=== PATIENT | female | born 1975 | race Caucasian/White ===

== ENCOUNTER 2018-03-22 07:47 | Observation (INO) | payer BC ==
[~2018-03-22 07:47] MED LIST: Lactated Ringers 1,000 ML IV SCH; Sodium Chloride 0.9% 10 ML Syringe FLUSH PRN; Sodium Chloride 0.9% 2.5 ML Syringe FLUSH PRN; ceFAZolin 1 GM in Premix Bag 1 BAG IV ONE
[2018-03-22] MEDS ORDERED: Fluorescein 5 ML Vial ONE (08:21)
[2018-03-22] MEDS ORDERED: Bupivacaine 0.25% 10 ML SDV ONE (08:21)
--- NOTE | 2018-03-22 08:47 | PCM.PREANE ---
Preanesthetic Assessment - Anesthesia/Transfusion/Family Hx Anesthesia History: Prior Anesthesia Without Reaction Family History of Anesthesia Reaction: No Transfusion History: No Prior Transfusion(s) Intubation History: Unknown - Review of Systems General: No Symptoms Pulmonary: No Symptoms Cardiovascular: No Symptoms Gastrointestinal: No Symptoms Neurological: No Symptoms Other: Reports: None - Physical Assessment Height: 1.6 m Weight: 63.049 kg ASA Class: 2 Mental Status: Alert & Oriented x3 Airway Class: Mallampati = 2 Dentition: Reports: Normal Dentition Thyro-Mental Finger Breadths: 3 Mouth Opening Finger Breadths: 2 ROM/Head Extension: Full Lungs: Clear to Auscultation, Normal Respiratory Effort Cardiovascular: Regular Rate, Regular Rhythm - Allergies Allergies/Adverse Reactions: Allergies Allergy/AdvReac Type Severity Reaction Status Date / Time Sulfa (Sulfonamide Allergy Rash Verified 03/17/18 09:38 Antibiotics) - Blood Blood Available: No - Anesthesia Plan Pre-Op Medication Ordered: None - Acknowledgements Anesthesia Type Planned: General Anesthesia Pt an Appropriate Candidate for the Planned Anesthesia: Yes Alternatives and Risks of Anesthesia Discussed w Pt/Guardian: Yes Pt/Guardian Understands and Agrees with Anesthesia Plan: Yes PreAnesthesia Questionnaire HEENT History: Reports: Allergic Rhinitis DRAG OUT MAN History: Reports: , Spontaneous Musculoskeletal History: Reports: Fracture Neurological History: Reports: Migraines (rarely) Psychiatric History: Reports: Depression - Past Surgical History Head Surgeries/Procedures: Reports: None HEENT Surgical History: Reports: Tonsillectomy Musculoskeletal Surgical History: Reports: Shoulder Surgery Other Musculoskeletal Surgeries/Procedures:: ORIF rt shoulder - SUBSTANCE USE Smoking Status *Q: Current Every Day Smoker (> 1ppd) Tobacco Use Within Last Twelve Months: Cigarettes Recreational Drug Use History: No - HOME MEDS Home Medications: Home Meds Acetaminophen/Diphenhydramine [Tylenol Pm Ex-Strength Caplet] 1 tab PO BEDTIME PRN 03/17/18 [History] Escitalopram Oxalate 20 mg PO DAILY 03/17/18 [History] Loratadine [Claritin] 10 mg PO ASDIRECTED PRN 03/17/18 [History] Multivitamin [Multivitamins] 1 tab PO DAILY 03/17/18 [History] - CURRENT (IN HOUSE) MEDS Current Meds: Current Medications Lactated Ringer's (Ringers, Lactated) 1,000 mls @ 500 mls/hr IV .BOLUS THUY Sodium Chloride (Saline Flush) 10 ml FLUSH ASDIRECTED PRN PRN Reason: Keep Vein Open Sodium Chloride (Saline Flush) 2.5 ml FLUSH ASDIRECTED PRN PRN Reason: Keep Vein Open Discontinued Medications Bupivacaine HCl (Sensorcaine-Mpf 0.25%) Confirm Administered Dose 20 ml .ROUTE .STK-MED ONE Stop: 03/22/18 08:22 Fluorescein Sodium (Ak-Fluor) Confirm Administered Dose 5 ml .ROUTE .STK-MED ONE Stop: 03/22/18 08:22 Cefazolin Sodium/Dextrose 1 gm (/ Premix) 50 mls @ 100 mls/hr IV ONETIME ONE Stop: 03/22/18 06:58
[2018-03-22] MEDS ORDERED: Lidocaine 2% 5 ML SDV ONE (08:52)
[2018-03-22] MEDS ORDERED: Propofol 200 MG/20 ML SDV ONE (08:52)
[2018-03-22] MEDS ORDERED: fentaNYL 250 MCG/5 ML SDV ONE (08:52)
[2018-03-22] MEDS ORDERED: ePHEDrine 50 MG/ML SDV ONE (08:52)
[2018-03-22] MEDS ORDERED: Acetaminophen 325 MG Tab PO PRN (09:22)
[2018-03-22 09:27] LABS: CHLORIDE,CL 106 mmol/L (98-107); SODIUM,NA 137 mmol/L (136-145)
[2018-03-22] MEDS ORDERED: Nicotine 21 MG/24 Hr Patch TRDERM SCH (09:30)
--- NOTE | 2018-03-22 09:57 | PCM.SN ---
- Free Text/Narrative Note: H & P in Chart 42 yo P4024 scheduled for hysterectomy today, however patient had 1 min loss of consciousness and pulse and loss of skin color. The nurse was with her in the room and said she did a short CPR and patient regained consciousness. Patient denied any chest pain , she however said she had some dizziness before the syncope Exam: General;- Not on any distress CVS: S1 s2 no murmurs Chest: CTA BL Abdomen; NAD VSS; In chart EKG - in Chart A/P 42 yo P4024 with 1 episode of Syncope pre op , surgery canceled Plan Nicotine patch Telemetry Consulted cardiology Troponin series EKG done
--- NOTE | 2018-03-22 13:58 | CONS ---
DATE OF CONSULTATION: 03/22/2018 DATE OF : 1975 PRIMARY CARE PHYSICIAN: None PCP REASON FOR CONSULTATION: Passing out. HISTORY OF PRESENT ILLNESS: This is a 42-year-old female with history of hypermenorrhea. She is scheduled to have vaginal hysterectomy today. However, during the IV preparation, she was stuck four times for the needles and she was so scared of it and it was very painful and afterwards, she started feeling nausea, sick to her stomach, dizzy, and she feels like warm feeling sensation, but she did not vomit. She was told that she looks so wide for 10 seconds, she passed out. The down time was 10 seconds and the nurse, who witnessed the occurrence could not find a pulse, so CPR was started very briefly and she came to it. The heart rate when she came to it was low with a heart rate of 50 and blood pressure is also low, has a systolic blood pressure of 80 as well. After she came to it, she was confused, she was sweating as well as she feels like tired. She stated that she passed out very long time about twenty years ago when she was . At that time, she had a similar warning symptom of a hot feeling, nausea, dizziness, and passed out. She did not remember what the situation was, but she remembered feeling the same thing. Currently, she was transferred to the medical floor and the surgery was canceled already. She also had a blood work done today, WBC 8, hematocrit of 40, creatinine 0.8, and then EKG also was done that shows sinus bradycardia, heart rate of 51. PAST MEDICAL HISTORY: Including hypermenorrhea. No history of hypertension, diabetes, or hyperlipidemia. SOCIAL HISTORY: Current smoker. No drug use. Occasional drinking. FAMILY HISTORY: Father had history of a stroke at the age of 40. ALLERGIES: She is allergic to sulfa. REVIEW OF SYSTEMS: Except indicated in HPI, otherwise has been negative. PHYSICAL EXAMINATION: VITAL SIGNS: Blood pressure when she passed out, it was 87/41 and it came up to 108/71; heart rate was 40 to 50, currently it is 76; O2 saturation is 96 on room air; respirations 16; temperature is 37.2. HEENT: No pallor. No jaundice. No JVD. HEART: Normal S1, S2. No murmur. Regular rate and rhythm. LUNGS: Clear. No crackles. ABDOMEN: Soft, nontender. Bowel sounds are present. No hepatosplenomegaly. EXTREMITIES: Legs, no edema. No calf pain. INVESTIGATION: CBC showed WBC of 8.8, hematocrit of 40, hemoglobin of 14, platelets 353. Sodium 137, potassium 4.5, chloride 106, bicarb 24, BUN 8, creatinine 0.8. Troponin was negative. Serum HCG was negative as well. Glucose 93. EKG shows sinus bradycardia, heart rate of 51, CO interval of 157, QRS duration 101, QTc interval 426. ASSESSMENT AND PLAN: 1. This is a 42-year-old female with history of former smoker, who passed out after needle insertion. 2. Syncopal episode with a slow heart rate, low blood pressure, most likely vasovagal syncope. Recommend hydration as well as I will also do the echocardiogram to rule out any structural abnormalities. The EKGs only show sinus bradycardia. She should be on the tele. She should also be on observation in the medical floor. MIKHAIL NELSON /[id number]
--- NOTE | 2018-03-22 14:26 | PCM.SN ---
- Free Text/Narrative Note: Patient presented today for laparoscopicly assisted vaginal hysterectomy. After 4 attempts to start i.v. patient felt nauseated, dizzy and hot which was followed by LOC . Radial pulse was not palpable by her nurse Susi Fitzpatrick neither were detectable any breathing efforts. Chest compressions were immediately started and patient regain consciousness after 10 sec by the time ambu bag was brought. Following that episode heart rate was in 40's and low 50' s with low blood pressure (systolic in the 80's). 12 lead EKG was obtained. HR was 51 and there were some questionable ST segment changes. Surgery was immediately canceled and after consultation with pastry decorator decision was made to keep the patient for observation and cardiac testing to rule out coronary event.
[2018-03-22] MEDS: Nicotine 21 MG/24 Hr Patch TRDERM SCH (15:42)
[2018-03-23] MEDS: Nicotine 21 MG/24 Hr Patch TRDERM SCH (09:00)
--- NOTE | 2018-03-23 11:28 | PCM.PN ---
- General Info Date of Service: 03/23/18 Admission Dx/Problem (Free Text): 42 yo admitted to telemetry due to sycopial attack , stable Subjective Update: Denies any complains Functional Status: Reports: Pain Controlled, Tolerating Diet - Review of Systems General: Reports: No Symptoms HEENT: Reports: No Symptoms Pulmonary: Reports: No Symptoms Cardiovascular: Reports: No Symptoms Gastrointestinal: Reports: No Symptoms Genitourinary: Reports: No Symptoms Musculoskeletal: Reports: No Symptoms Skin: Reports: No Symptoms Neurological: Reports: No Symptoms Psychiatric: Reports: No Symptoms - Patient Data Vitals - Most Recent: Last Vital Signs Temp 36.2 C 03/23/18 08:00 Pulse 52 L 03/23/18 08:00 Resp 17 03/23/18 08:00 BP 120/60 03/23/18 08:00 Pulse Ox 94 L 03/23/18 08:00 Orthostatic Blood Pressure [ 106/69 Standing] Orthostatic Blood Pressure [ 108/66 Sitting] Orthostatic Blood Pressure [ 108/58 Supine] Weight - Most Recent: 63.049 kg I&O - Last 24 Hours: Intake & Output 03/22/18 03/23/18 03/23/18 22:59 06:59 14:59 Intake Total 450 600 Output Total 0 0 Balance 450 600 Lab Results Last 24 Hours: Laboratory Results - last 24 hr 03/22/18 03/22/18 03/22/18 Range/Units 08:28 13:15 16:07 CK-MB (CK-2) Cancelled Troponin I Cancelled < 0.050 < 0.050 Med Orders - Current: Current Medications Acetaminophen (Tylenol) 650 mg PO Q4H PRN PRN Reason: analgesia/fever Last Admin: 03/22/18 11:32 Dose: 650 mg Lactated Ringer's (Ringers, Lactated) 1,000 mls @ 500 mls/hr IV .BOLUS THUY Last Admin: 03/22/18 08:30 Dose: 500 mls/hr Nicotine (Habitrol) 21 mg TRDERM Q24H THUY Last Admin: 03/23/18 09:00 Dose: 21 mg Sodium Chloride (Saline Flush) 10 ml FLUSH ASDIRECTED PRN PRN Reason: Keep Vein Open Sodium Chloride (Saline Flush) 2.5 ml FLUSH ASDIRECTED PRN PRN Reason: Keep Vein Open Discontinued Medications Bupivacaine HCl (Sensorcaine-Mpf 0.25%) Confirm Administered Dose 20 ml .ROUTE .STK-MED ONE Stop: 03/22/18 08:22 Ephedrine Sulfate (Ephedrine Sulfate) Confirm Administered Dose 50 mg .ROUTE .STK-MED ONE Stop: 03/22/18 08:53 Fentanyl (Sublimaze) Confirm Administered Dose 250 mcg .ROUTE .STK-MED ONE Stop: 03/22/18 08:53 Fluorescein Sodium (Ak-Fluor) Confirm Administered Dose 5 ml .ROUTE .STK-MED ONE Stop: 03/22/18 08:22 Cefazolin Sodium/Dextrose 1 gm (/ Premix) 50 mls @ 100 mls/hr IV ONETIME ONE Stop: 03/22/18 06:58 Last Admin: 03/22/18 10:53 Dose: Not Given Lidocaine (Xylocaine-Mpf 2%) Confirm Administered Dose 5 ml .ROUTE .STK-MED ONE Stop: 03/22/18 08:53 Nicotine (Habitrol) 21 mg TRDERM Q24H THUY Propofol (Diprivan 20 Ml) Confirm Administered Dose 200 mg .ROUTE .STK-MED ONE Stop: 03/22/18 08:53 - Exam General: Alert HEENT: Pupils Equal Neck: Supple Lungs: Clear to Auscultation Cardiovascular: Regular Rate, Regular Rhythm GI/Abdominal Exam: Normal Bowel Sounds (Female) Exam: Normal External Exam - Problem List & Annotations (1) Syncope SNOMED Code(s): 222656215 Code(s): R55 - SYNCOPE AND COLLAPSE Status: Acute Current Visit: Yes - Problem List Review Problem List Initiated/Reviewed/Updated: Yes - My Orders Last 24 Hours: My Active Orders 03/22/18 Lunch Regular Diet [DIET] - Assessment Assessment:: 42yo with syncopial attack after multple IV insertion line attempt, patient was scheduled for LAVH/BS , however procedure was canceled due to syncopial attack - Plan Plan:: Discharge home Patient to follow up with cardiology
--- NOTE | 2018-03-23 11:36 | PCM.DCSUM1 ---
Discharge Summary - Hospital Course Brief History: 42yo with syncopial attack after multple IV insertion line attempt, patient was scheduled for LAVH/BS , however procedure was canceled due to syncopial attack. Patient had telemetry done for 24 hrs , troponin - negative Diagnosis: Stroke: No - Discharge Data Discharge Date: 03/23/18 Discharge Disposition: Home, Self-Care 01 Condition: Good - Discharge Diagnosis/Problem(s) (1) Syncope SNOMED Code(s): 277170788 ICD Code: R55 - SYNCOPE AND COLLAPSE Status: Acute Current Visit: Yes - Patient Summary/Data Consults: Consultations 03/22/18 09:27 Consult to Physician [CONS] Routine - Patient Instructions Diet: Regular Diet as Tolerated Activity: As Tolerated Driving: May Drive Today Showering/Bathing: May Shower Notify Provider of: Fever, Increased Pain, Swelling and Redness Other/Special Instructions: Patient to follow up with Cardiology in 1 week for clearance. Will schedule surgery after cardiology clearance - Discharge Plan Home Medications: Home Meds Acetaminophen/Diphenhydramine [Tylenol Pm Ex-Strength Caplet] 1 tab PO BEDTIME PRN 03/17/18 [History] Escitalopram Oxalate 20 mg PO DAILY 03/17/18 [History] Loratadine [Claritin] 10 mg PO ASDIRECTED PRN 03/17/18 [History] Multivitamin [Multivitamins] 1 tab PO DAILY 03/17/18 [History] Referrals: Ute Lopez MD [Physician] - - Patient Data Vitals - Most Recent: Last Vital Signs Temp 36.2 C 03/23/18 08:00 Pulse 52 L 03/23/18 08:00 Resp 17 03/23/18 08:00 BP 120/60 03/23/18 08:00 Pulse Ox 94 L 03/23/18 08:00 Orthostatic Blood Pressure [ 106/69 Standing] Orthostatic Blood Pressure [ 108/66 Sitting] Orthostatic Blood Pressure [ 108/58 Supine] Weight - Most Recent: 63.049 kg I&O - Last 24 hours: Intake & Output 03/22/18 03/23/18 03/23/18 22:59 06:59 14:59 Intake Total 450 600 Output Total 0 0 Balance 450 600 Lab Results - Last 24 hrs: Laboratory Results - last 24 hr 0703/22/18 03/22/18 Range/Units 08:28 13:15 16:07 CK-MB (CK-2) Cancelled Troponin I Cancelled < 0.050 < 0.050 Med Orders - Current: Current Medications Acetaminophen (Tylenol) 650 mg PO Q4H PRN PRN Reason: analgesia/fever Last Admin: 03/22/18 11:32 Dose: 650 mg Lactated Ringer's (Ringers, Lactated) 1,000 mls @ 500 mls/hr IV .BOLUS THUY Last Admin: 03/22/18 08:30 Dose: 500 mls/hr Nicotine (Habitrol) 21 mg TRDERM Q24H THUY Last Admin: 03/23/18 09:00 Dose: 21 mg Sodium Chloride (Saline Flush) 10 ml FLUSH ASDIRECTED PRN PRN Reason: Keep Vein Open Sodium Chloride (Saline Flush) 2.5 ml FLUSH ASDIRECTED PRN PRN Reason: Keep Vein Open Discontinued Medications Bupivacaine HCl (Sensorcaine-Mpf 0.25%) Confirm Administered Dose 20 ml .ROUTE .STK-MED ONE Stop: 03/22/18 08:22 Ephedrine Sulfate (Ephedrine Sulfate) Confirm Administered Dose 50 mg .ROUTE .STK-MED ONE Stop: 03/22/18 08:53 Fentanyl (Sublimaze) Confirm Administered Dose 250 mcg .ROUTE .STK-MED ONE Stop: 03/22/18 08:53 Fluorescein Sodium (Ak-Fluor) Confirm Administered Dose 5 ml .ROUTE .STK-MED ONE Stop: 03/22/18 08:22 Cefazolin Sodium/Dextrose 1 gm (/ Premix) 50 mls @ 100 mls/hr IV ONETIME ONE Stop: 03/22/18 06:58 Last Admin: 03/22/18 10:53 Dose: Not Given Lidocaine (Xylocaine-Mpf 2%) Confirm Administered Dose 5 ml .ROUTE .STK-MED ONE Stop: 03/22/18 08:53 Nicotine (Habitrol) 21 mg TRDERM Q24H THUY Propofol (Diprivan 20 Ml) Confirm Administered Dose 200 mg .ROUTE .STK-MED ONE Stop: 03/22/18 08:53
--- NOTE | 2018-03-25 19:48 | ECHO ---
The echocardiogram report can be seen in this patient's EMR (Electronic Medical Record) in the Reports section. The echocardiogram report has been scanned into PACS and can be seen there as well. LULY
== END 2018-03-23 12:10 | disposition home or self-care (01) ==
LOC: MW.SDS 07:47 → MW.MS 10:50
PROVIDERS: ADMIT Obstetrics & Gynecology; ATTEND Obstetrics & Gynecology
DX: N92.0 Excessive and frequent menstruation with regular cycle (principal); Z53.09 Procedure and treatment not carried out because of other contraindication; R55 Syncope and collapse; N39.41 Urge incontinence; F17.210 Nicotine dependence, cigarettes, uncomplicated; F32.9 Major depressive disorder, single episode, unspecified; Z79.899 Other long term (current) drug therapy; Z88.2 Allergy status to sulfonamides
CPT/HCPCS: 36415; 80048; 84484; 84703; 85027; 86850; 86900; 86901; 93005; 93306; A9270; J7120; J2704; J3010

== ENCOUNTER 2022-10-26 11:00 | Day surgery (SDC) | payer BC ==
[~2022-10-26 11:00] MED LIST changes: +Albuterol 0.083% 2.5 MG/3 ML Neb Soln NEB PRN; +HYDROmorphone 1 MG/ML Syringe IVPUSH PRN; -Lactated Ringers 1,000 ML IV SCH; +Metoclopramide 10 MG/2 ML SDV IVPUSH PRN; +Morphine 2 MG/ML SYRINGE IVPUSH PRN; +Naloxone 0.4 MG/ML SDV IVPUSH PRN; +Ondansetron 4 MG/2 ML SDV IVPUSH PRN; -Sodium Chloride 0.9% 10 ML Syringe FLUSH PRN; -Sodium Chloride 0.9% 2.5 ML Syringe FLUSH PRN; -ceFAZolin 1 GM in Premix Bag 1 BAG IV ONE; +fentaNYL 50 MCG/ML SDV IVPUSH PRN
[2022-10-26] MEDS ORDERED: Lactated Ringers 1,000 ML IV SCH (11:15)
[2022-10-26] MEDS ORDERED: Ketorolac 30 MG/ML SDV ONE (11:57)
[2022-10-26] MEDS ORDERED: Dexamethasone 4 MG/ML 5 ML MDV ONE (11:57)
[2022-10-26] MEDS ORDERED: Ondansetron 4 MG/2 ML SDV ONE (11:57)
[2022-10-26] MEDS ORDERED: Propofol 200 MG/20 ML SDV ONE (11:57)
[2022-10-26] MEDS ORDERED: Lidocaine 2% 5 ML SDV ONE (11:57)
[2022-10-26] MEDS ORDERED: fentaNYL 100 MCG/2 ML SDV ONE (11:57)
[2022-10-26] MEDS ORDERED: Lidocaine 2% 11 ML Jelly Filled Syringe ONE (11:58)
[2022-10-26] MEDS ORDERED: TRANEXAMIC ACID 650 MG PO PRN (13:25)
[2022-10-26] MEDS ORDERED: Loratadine 10 MG Tab PO PRN (13:25)
[2022-10-26] MEDS ORDERED: DIPHENHYDRAMINE PO PRN (13:25)
[2022-10-26] MEDS ORDERED: ACETAMINOPHEN PO PRN (13:25)
[2022-10-26] MEDS ORDERED: Acetaminophen 1,000 MG in Premix Bag 1 BAG IV ONE (13:30)
== END 2022-10-26 13:58 | disposition home or self-care (01) ==
LOC: MW.SDS 11:00
PROVIDERS: ATTEND Obstetrics & Gynecology
DX: N93.9 Abnormal uterine and vaginal bleeding, unspecified (principal); G43.909 Migraine, unspecified, not intractable, without status migrainosus; F32.A Depression, unspecified; F41.9 Anxiety disorder, unspecified; E66.9 Obesity, unspecified; Z68.32 Body mass index [BMI] 32.0-32.9, adult; Z98.890 Other specified postprocedural states; Z79.899 Other long term (current) drug therapy; Z87.891 Personal history of nicotine dependence; Z88.2 Allergy status to sulfonamides
CPT/HCPCS: 58563; A9270; J0131; J1100; J1885; J2405; J2704; J3010; J7120; J3490